=== PATIENT | female | born 1940 | race Caucasian/White ===

== ENCOUNTER → 2020-09-28 12:05 | Outpatient (CLI) | payer MEDICARE, SELFPAY ==
[2020-09-20 15:44] VITALS: BMI 32.2
--- NOTE | 2020-09-28 12:07 | MRI_ITS ---
STUDY: MRI ABDOMEN WITH AND WITHOUT CONTRAST REASON FOR EXAM: Female, 79 years old. staging for liver ca TECHNIQUE: Standardized fat and water weighted pulse sequences were obtained in all 3 orthogonal planes post contrast administration. IV 17 cc dotarem was administered for the contrast portion of the examination. COMPARISON: None. FINDINGS: Examination is technically limited in large part due to motion artifact related to respiratory motion. Definitive evaluation, including lesion characterization and relationship of the lesion to adjacent portal and hepatic veins cannot be made. Some diagnostic information is available. There is a heterogeneous 4.8 cm lesion in the proximal hilar segment 7 crossing over into segment 8. The lesion is intimately related to the right hepatic vein and to the superior branch of the right portal vein. The lesion is heterogeneous with continuous filling and of enhancement and peripheral enhancement predominance. Liver parenchyma is normal without cirrhosis. There is no ascites. Portal vein is patent. There is no upper abdominal lymphadenopathy. 2.8 cm benign left adrenal adenoma is present. Right adrenal is normal. There are bilateral renal rounded lesions of various sizes. However, definitive characterization cannot be performed due to difficulty assessing for contrast enhancement with heterogeneous signal of the lesions. Perirenal space is normal. Spleen and pancreas are normal. There is no intestinal obstruction. MRI/MRI Abd WITH and W/O Contrast IMPRESSION: 1. Technically limited exam. See above for discussion regarding inability to characterize relationship between the lesion and hepatic vasculature. 2. 4.8 cm segment 7 lesion, incompletely characterized, differential diagnosis is hemangioma versus less likely hepatoma. 3. No cirrhosis, normal parenchyma. 4. Recommend performing dedicated hepatic/hemangioma multiphasic protocol CT with IV contrast for more definitive diagnosis. 5. Renal lesions, incompletely characterized. These can be diagnosed at the time of the above recommended hepatic CT. Electronically Signed: Stacey Petersen, at 20:25 EST Tel , Service support ,
== END ==
PROVIDERS: PCP Preventive Medicine Occupational Medicine; Referring Provider Internal Medicine Medical Oncology; Visit Provider Internal Medicine Medical Oncology
DX: C22.9 Malignant neoplasm of liver, not specified as primary or secondary (principal)
CPT/HCPCS: 74183; A9575

== ENCOUNTER 2020-12-13 06:59 | Day surgery (SDC) | payer MEDICARE, SELFPAY ==
--- NOTE | 2009-11-13 07:00 | HP_ITS ---
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: No Is patient in pain?: No Allergies Iodinated Contrast Media Adverse Reaction (Verified 10/17/20 08:22) NEEDS FOLLOW-UP Medications Allopurinol [Zyloprim] 300 mg PO DAILY 09/19/20 [History Confirmed 10/17/20] Amlodipine [Norvasc] 5 mg PO DAILY 09/19/20 [History Confirmed 10/17/20] Aspirin [Adult Low Dose Aspirin EC] 81 mg PO DAILY 09/19/20 [History Confirmed 10/17/20] Carvedilol 25 mg PO BID 09/19/20 [History Confirmed 10/17/20] Clonidine HCl 2 mg PO DAILY 09/19/20 [History Confirmed 10/17/20] Furosemide [Lasix] 40 mg PO DAILY 09/19/20 [History Confirmed 10/17/20] Insulin Glargine,Hum.rec.anlog [Lantus] 50 units SQ DAILY 09/19/20 [History Confirmed 10/17/20] Lisinopril [Zestril] 40 mg PO DAILY 09/19/20 [History Confirmed 10/17/20] Omeprazole [Prilosec] 20 mg PO DAILY 09/19/20 [History Confirmed 10/17/20] Pravastatin [Pravachol] 40 mg PO DAILY 09/19/20 [History Confirmed 10/17/20] Sotalol HCl [Betapace AF (Beta Callie)] 80 mg PO BID 09/19/20 [History Confirmed 10/17/20] Vits A,C,E/Lutein/Minerals [Ocuvite with Lutein Tablet] 1 tab PO DAILY 09/19/20 [History Confirmed 10/17/20] [facility] Medical History Adenocarcinoma of liver (Acute) Benign neoplasm of adrenal gland (Acute) Carotid artery disease (Acute) Congenital renal cyst (Acute) Diabetes mellitus type II, controlled (Acute) Emphysema, unspecified (Acute) Essential hypertension (Acute) Heart disease, unspecified (Acute) Renal cyst, [place], hemorrhage (Acute) Right renal mass (Acute) Unspecified urinary incontinence (Acute) Surgical History History of carotid endarterectomy (Acute) History of cholecystectomy (Acute) History of colonoscopy (Acute) History of liver biopsy (Acute) Family History Sister Breast cancer Brother Cancer Social History (Updated 10/17/20 @ 08:[address] Mamadou Fam MD) Smoking Status: Never smoker alcohol intake: current substance use type: does not use HPI HPI HPI: SASKIA FU, is a 80 F who presents to the office today for HPI HPI Surgical H&P: Yes HPI: SASKIA FU is a 80 F who presents to the office today for Endoscopy. 79-year-old woman with history of right kidney mass on observation, was found to have a mass in the right hepatic lobe measuring 5.1 cm with questionable vascular invasion adjacent to the hepatic IVC, left adrenal lesion 2.9 cm and right kidney nodule on CT done at [facility] in [place]. She had a CT- guided biopsy on 09/06/2020 at [place]. 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 She has had a colonoscopy approximately 11 years ago which she cannot recall where it was done or who did it. She has had 4 C-sections a laparoscopic cholecystectomy approximately 16 years ago and a total abdominal hysterectomy. Patient has been complaining of abdominal pain in both the left and right upper quadrants has been going on for approximately 2 weeks and gradually increasing in nature. She cannot recall any association with foods that she has been eating or activities. ROS General General: No weight change, appetite, fatigue, colon cancer, breast cancer or weakness HEENT HEENT: No difficulty swallowing, eye injury, eye surgery, swollen glands or hoarseness Endo Endocrine: Yes diabetes mellitus; no thyroid disease, thyroid cancer, Hair loss, heat intolerance or cold intolerance Skin Skin: Yes rash; no changing moles Additional Details: Frequent yeast rashes under breast Breast Breast: No left breast lump, right breast lump, nipple discharge, breast pain, abnormal mammogram, abnormal US or breast enlargement Musc Musculoskeletal: Yes back problems; no arthritis, rheumatoid arthritis, gout or joint pain Cardio Cardiovascular: Yes heart disease, high blood pressure, heart stent, shortness of breat with exertion and chest pain; no murmur, pacemaker, atrial fibrillation, heart attack or palpitations Psych Psychiatric: Yes depression and anxiety; no hearing voices Resp Respiratory: Yes shortness of breath, Yes sleep apnea, No cough, No COPD, No asthma, No emphysema, No wheezing Gastro Gastrointestinal: Yes abdominal pain, No nausea or vomiting, No diarrhea, Yes constipation, No blood in stool, Yes acid reflux, Yes hemorrhoids, No ulcers, No gallbladder problem, No black,tarry stools Anjum Hematologic: Yes blood thinners, No blood disorders, No bleeding, No anemia, No blood clots Neuro Neurologic: No system reviewed and no additional complaints, except as docu, No as per HPI, No abnormal walking, No abnormal hearing, No abnormal movements, No abnormal speech, No behavioral changes, No burning sensations, No confusion, No seizure-like activity, No unsteadiness, No dizziness, No localized weakness, No frequent falls, No headache(s), No lack of coordination, No loss of vision, No memory loss, No numbness, No other visual disturbances, No radiating pain, No restless legs, No sensory deficit, No fainting, No tingling, No tremor(s), No weakness, No other Exam Chest Breast Palpation: No nipple discharge Cardio Heart Sounds: no murmurs Assessment & Plan Problems 1. Adenocarcinoma of liver C22.9 Plan I have discussed the above with the patient. I have offered the patient colonoscopy As well as an EGD for evaluation. I have explained the risks/benefits of the procedure and described the procedure. I have discussed the risks with the patient, including but not limited to: infection, bleeding, perforation of the GI tract requiring emergency surgery, inability to complete the procedure, injury to any internal organs, complications of anesthesia, etc. - the patient understands and agrees to proceed. I have answered all the patient's questions to the patient's satisfaction and the patient has no further questions. The patient has been given instructions for the colon cleansing preparation. Coding Level of Care Code Attention Kajal Diagnoses Adenocarcinoma of liver C22.9 Time Spent (min) 15 Comment Please code this is a telephone visit for 15 minutes. COVID (Procedure Consent) Procedure Criteria Procedure Criteria: Yes Elective The surgeon/proceduralist and patient have discussed in detail the risk of exposure to and/or potential harm posed by the COVID-19 virus with having a surgery/procedure at this time versus the risk of? delaying the surgery/procedure. It is not possible to know either the risk of delaying the surgery or procedure or chance of getting an infection with perfect accuracy, but a joint decision was made between the patient and the surgeon/proceduralist ?to proceed at this time with the scheduled surgery/procedure as indicated on the consent form.
[2020-10-24 14:58] VITALS: BMI 31.6
[2020-12-13] VITALS (7 sets, daily range): BP systolic 125–155; BP diastolic 57–101; PULSE 59–66; RESP 16; TEMP 36.2–36.3; O2SAT 96–98; BMI 29.7
--- NOTE | 2020-12-13 07:20 | HP.PCM_ITS ---
History and Physical Date of Admission: 12/13/20 [facility] Medical Records Department [address] [place] [address] MR#: [id number] Acct: [id number] Name: SASKIA FU Rep #:[id number] : 1940 80 From: Mamadou Fam MD PCP: Dr. Jayme Kurtz, DO Status:[facility] Location: EN Intake Intake Visit Reasons: EGD & C-Scope liver cancer Chief Complaint: consult for EGD and C-scope Honing Machine Set Up Operator Required: No Is patient in pain?: No Allergies Iodinated Contrast Media Adverse Reaction (Verified 10/17/20 08:22) NEEDS FOLLOW-UP Medications Allopurinol [Zyloprim] 300 mg PO DAILY 09/19/20 [History Confirmed 10/17/20] Amlodipine [Norvasc] 5 mg PO DAILY 09/19/20 [History Confirmed 10/17/20] Aspirin [Adult Low Dose Aspirin EC] 81 mg PO DAILY 09/19/20 [History Confirmed 10/17/20] Carvedilol 25 mg PO BID 09/19/20 [History Confirmed 10/17/20] Clonidine HCl 2 mg PO DAILY 09/19/20 [History Confirmed 10/17/20] Furosemide [Lasix] 40 mg PO DAILY 09/19/20 [History Confirmed 10/17/20] Insulin Glargine,Hum.rec.anlog [Lantus] 50 units SQ DAILY 09/19/20 [History Confirmed 10/17/20] Lisinopril [Zestril] 40 mg PO DAILY 09/19/20 [History Confirmed 10/17/20] Omeprazole [Prilosec] 20 mg PO DAILY 09/19/20 [History Confirmed 10/17/20] Pravastatin [Pravachol] 40 mg PO DAILY 09/19/20 [History Confirmed 10/17/20] Sotalol HCl [Betapace AF (Beta Callie)] 80 mg PO BID 09/19/20 [History Confirmed 10/17/20] Vits A,C,E/Lutein/Minerals [Ocuvite with Lutein Tablet] 1 tab PO DAILY 09/19/20 [History Confirmed 10/17/20] [facility] Medical History Adenocarcinoma of liver (Acute) Benign neoplasm of adrenal gland (Acute) Carotid artery disease (Acute) Congenital renal cyst (Acute) Diabetes mellitus type II, controlled (Acute) Emphysema, unspecified (Acute) Essential hypertension (Acute) Heart disease, unspecified (Acute) Renal cyst, [place], hemorrhage (Acute) Right renal mass (Acute) Unspecified urinary incontinence (Acute) Surgical History History of carotid endarterectomy (Acute) History of cholecystectomy (Acute) History of colonoscopy (Acute) History of liver biopsy (Acute) Family History Sister Breast cancer Brother Cancer Social History (Updated 10/17/20 @ 08:[address] Mamadou Fam MD) Smoking Status: Never smoker alcohol intake: current substance use type: does not use HPI HPI Surgical H&P: Yes HPI: SASKIA FU, is a 80 F who presents to the office today for Endoscopy. 79-year-old woman with history of right kidney mass on observation, was found to have a mass in the right hepatic lobe measuring 5.1 cm with questionable vascular invasion adjacent to the hepatic IVC, left adrenal lesion 2.9 cm and right kidney nodule on CT done at [facility] in [place]. She had a CT- guided biopsy on 09/06/2020 at [place]. 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 She has had a colonoscopy approximately 11 years ago which she cannot recall where it was done or who did it. She has had 4 C-sections a laparoscopic cholecystectomy approximately 16 years ago and a total abdominal hysterectomy. Patient has been complaining of abdominal pain in both the left and right upper quadrants has been going on for approximately 2 weeks and gradually increasing in nature. She cannot recall any association with foods that she has been eating or activities. ROS General General: No weight change, appetite, fatigue, colon cancer, breast cancer or weakness HEENT HEENT: No difficulty swallowing, eye injury, eye surgery, swollen glands or hoarseness Endo Endocrine: Yes diabetes mellitus; no thyroid disease, thyroid cancer, Hair loss, heat intolerance or cold intolerance Skin Skin: Yes rash; no changing moles Additional Details: Frequent yeast rashes under breast Breast Breast: No left breast lump, right breast lump, nipple discharge, breast pain, abnormal mammogram, abnormal US or breast enlargement Musc Musculoskeletal: Yes back problems; no arthritis, rheumatoid arthritis, gout or joint pain Cardio Cardiovascular: Yes heart disease, high blood pressure, heart stent, shortness of breat with exertion and chest pain; no murmur, pacemaker, atrial fibrillation, heart attack or palpitations Psych Psychiatric: Yes depression and anxiety; no hearing voices Resp Respiratory: Yes shortness of breath, Yes sleep apnea, No cough, No COPD, No asthma, No emphysema, No wheezing Gastro Gastrointestinal: Yes abdominal pain, No nausea or vomiting, No diarrhea, Yes constipation, No blood in stool, Yes acid reflux, Yes hemorrhoids, No ulcers, No gallbladder problem, No black,tarry stools Anjum Hematologic: Yes blood thinners, No blood disorders, No bleeding, No anemia, No blood clots Neuro Neurologic: No system reviewed and no additional complaints, except as docu, No as per HPI, No abnormal walking, No abnormal hearing, No abnormal movements, No abnormal speech, No behavioral changes, No burning sensations, No confusion, No seizure-like activity, No unsteadiness, No dizziness, No localized weakness, No frequent falls, No headache(s), No lack of coordination, No loss of vision, No memory loss, No numbness, No other visual disturbances, No radiating pain, No restless legs, No sensory deficit, No fainting, No tingling, No tremor(s), No weakness, No other Exam Chest Breast Palpation: No nipple discharge Cardio Heart Sounds: no murmurs Assessment & Plan Problems 1. Adenocarcinoma of liver C22.9 Plan I have discussed the above with the patient. I have offered the patient colonoscopy As well as an EGD for evaluation. I have explained the risks/benefits of the procedure and described the procedure. I have discussed the risks with the patient, including but not limited to: infection, bleeding, perforation of the GI tract requiring emergency surgery, inability to complete the procedure, injury to any internal organs, complications of anesthesia, etc. - the patient understands and agrees to proceed. I have answered all the patient's questions to the patient's satisfaction and the patient has no further questions. The patient has been given instructions for the colon cleansing preparation. Coding Level of Care Code Attention Senior Actuarial Analyst Diagnoses Adenocarcinoma of liver C22.9 Time Spent (min) 15 Comment Please code this is a telephone visit for 15 minutes. COVID (Procedure Consent) Procedure Criteria Procedure Criteria: Yes Elective The surgeon/proceduralist and patient have discussed in detail the risk of exposure to and/or potential harm posed by the COVID-19 virus with having a surgery/procedure at this time versus the risk of? delaying the surgery/procedure. It is not possible to know either the risk of delaying the surgery or procedure or chance of getting an infection with perfect accuracy, but a joint decision was made between the patient and the surgeon/proceduralist ?to proceed at this time with the scheduled surgery/procedure as indicated on the consent form. I have re-examined the patient. There are no clinical changes since date of exam.
[2020-12-13] MEDS: Lactated Ringers 1,000 ML 100 ML IV (07:46)
--- NOTE | 2020-12-13 08:00 | EGD_PTH ---
PATIENT: SASKIA FU LOC: EN U#:[id number] AGE/SX: 80/F ROOM: RE12/13/[address]: Dr. Mamadou Fam MD : 1940 BED: DIS: 12/13/2020 SPEC #: [id number] RECD: 12/13/20 10:52 STATUS: ARLEEN REVenus #: [id number] ALTHEA: 12/13/20 08:[address]: Mamadou Fam DEPT: SURGICAL PATHOLOGY RECD BY: Shoshana Gross ENTERED: 12/13/20 12:55 SP TYPE: EGD BIOPSY OTHR DR: Dr. Jayme Kurtz, DO Tissues: Gastric mucous membrane Procedures: Surgery Specimen Level IV HEADER OPERATION: Colonoscopy, [place] DIAGNOSIS: Adenocarcinoma of liver TISSUE SUBMITTED: Antrum biopsy for H. pylori and path MICROSCOPIC DIAGNOSIS Antrum biopsy: Mild gastritis. See microscopic description and comment. SJ:alexandrea 12/14/2020 COMMENT The results of immunohistochemistry for Helicobacter pylori will be reported separately ([id number]). MICROSCOPIC DESCRIPTION Slides are reviewed. The specimen shows fragments of gastric mucosa with chronic inflammatory cell infiltrates in the lamina propria consisting of lymphocytes and plasma cells, consistent with mild chronic gastritis. GROSS DESCRIPTION Received in fixative is one container labeled with the patient's name and designated antrum biopsy. The specimen consists of one irregular fragment of light evans soft tissue that measures 0.6 x 0.2 x 0.1 cm. The specimen is totally submitted in one cassette. / AM:alexandrea 12/13/20 TC:3 CPT: 86561
--- NOTE | 2020-12-13 08:00 | IMM_PTH ---
PATIENT: SASKIA FU LOC: EN U#:[id number] AGE/SX: 80/F ROOM: RE12/13/[address]: Dr. Mamadou Fam MD : 1940 BED: DIS: 12/13/2020 SPEC #: [id number] RECD: 12/13/20 13:51 STATUS: ARLEEN REQ #: [id number] ALTHEA: 12/13/20 08:[address]: Mamadou Fam DEPT: IMMUNOHISTOCHEMISTRY RECD BY: Melissa Wing ENTERED: 12/13/20 13:52 SP TYPE: IMMUNO OTHR DR: Dr. Jayme Kurtz DO Tissues: Stomach, NOS Procedures: H Pylori (initial) PHYSICIAN & INSTITUTION [place] [address] SPECIMEN INFORMATION: Tissue Source: Antrum biopsy Clinical Info: Adenocarcinoma of liver Specimen Number: [id number] CPT code: 91299 METHODOLOGY: Deparaffinized sections of prefer/formalin-fixed tissue or PAP/DQ stained slides are incubated with monoclonal/polyclonal antibodies/oligonucleotide probes. Localization is made via biotin free immunoperoxidase method. Appropriate controls are performed and reacted as expected. Results on target cell population are indicated in the following table: RESULTS: ANTIBODY / CLONE RESULT H Pylori (polyclonal) negative These tests were developed and their performance characteristics determined by [facility]. They may not have been cleared or approved by the U.S. Food and Drug Administration. The FDA has determined that such clearance or approval is not necessary. INTERPRETATION: Antrum, biopsy: Negative for Helicobacter pylori organisms. REBECCA:alexandrea 12/14/2020
[2020-12-13 08:10] LABS: Bedside Glucose 170 mg/dL (70-110)
--- NOTE | 2020-12-13 08:15 | RAD_ITS ---
STUDY: BARIUM ENEMA. REASON FOR EXAM: Female, 80 years old. POST COLONOSCOPY, SIGMOID STRICTURE FLUOROSCOPY TIME (if supplied): ( 3 minutes and 8 seconds ) minutes/seconds. 16 images were obtained. TECHNIQUE: Barium was introduced retrograde through the rectum. The entire colon was opacified. COMPARISON: None. FINDINGS: Scattered sigmoid diverticulosis. No evidence of retrograde obstruction to the flow of contrast. Scattered residual fecal material seen throughout the colon. RAD/Barium Enema w/Air Contrast IMPRESSION: Sigmoid diverticulosis. No evidence of obstruction. Electronically Signed: Landon Disla MD at 10:05 EST , Service support ,
--- NOTE | 2020-12-13 13:42 | OP.EGD_ITS ---
Patient Name: Kiana Pereira Procedure Date: 12/13/2020 7:45 AM Date of : 1940 Age: 80 Procedure: Upper GI endoscopy Indications: Upper abdominal pain, Abnormal CT of the GI tract Providers: Mamadou Fam MD Referring MD: Jayme Kurtz Medicines: See the Anesthesia note for documentation of the administered medications Patient Profile: This is an 80 year old female. Refer to note in patient chart for documentation of history and physical. Complications: No immediate complications. Procedure: Pre-Anesthesia Assessment: - Prior to the procedure, a History and Physical was performed, and patient medications and allergies were reviewed. The patient's tolerance of previous anesthesia was also reviewed. The risks and benefits of the procedure and the sedation options and risks were discussed with the patient. All questions were answered, and informed consent was obtained. Prior Anticoagulants: The patient has taken no previous anticoagulant or antiplatelet agents. ASA Grade Assessment: III - A patient with severe systemic disease. After reviewing the risks and benefits, the patient was deemed in satisfactory condition to undergo the procedure. After obtaining informed consent, the endoscope was passed under direct vision. Throughout the procedure, the patient's blood pressure, pulse, and oxygen saturations were monitored continuously. The gastroscope was introduced through the mouth, and advanced to the second part of duodenum. The upper GI endoscopy was accomplished without difficulty. The patient tolerated the procedure well. Scope In: 7:56:48 AM Scope Out: 7:59:21 AM Total Procedure Duration Time 0 hours 2 minutes 33 seconds Findings: A medium-sized hiatal hernia was present. No biopsies or other specimens were collected for this exam. The entire examined stomach was normal. Biopsies were taken with a cold forceps for Helicobacter pylori testing. The examined duodenum was normal. No biopsies or other specimens were collected for this exam. Impression: - Medium-sized hiatal hernia. No specimens collected. Z-line was at 34 cm diaphragmatic hiatus was at 37 cm. - Normal stomach. Biopsied. - Normal examined duodenum. No specimens collected. Recommendation: - Discharge patient to home. - Resume previous diet. - Continue present medications. - Await pathology results. - Repeat upper endoscopy PRN for surveillance. - Telephone my office for pathology results in 1 week. Procedure Code(s): --- Professional --- 42693, Esophagogastroduodenoscopy, flexible, transoral; with biopsy, single or multiple Diagnosis Code(s): --- Professional --- K44.9, Diaphragmatic hernia without obstruction or gangrene R10.10, Upper abdominal pain, unspecified R93.3, Abnormal findings on diagnostic imaging of other parts of digestive tract CPT copyright 2017 [employer]. All rights reserved. The codes documented in this report are preliminary and upon landcare officer review may be revised to meet current compliance requirements. MD Mamadou Saunders MD 12/13/2020 8:22:10 AM This report has been signed electronically. Number of Addenda: 0 Note Initiated On: 12/13/2020 7:45 AM
--- NOTE | 2020-12-13 13:42 | OP.COLON_ITS ---
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 Refer to note in patient chart for documentation of history and physical. Last Colonoscopy: more than 10 years ago. Complications: No immediate complications. Procedure: Pre-Anesthesia Assessment: - Prior to the procedure, a History and Physical was performed, and patient medications and allergies were reviewed. The patient's tolerance of previous anesthesia was also reviewed. The risks and benefits of the procedure and the sedation options and risks were discussed with the patient. All questions were answered, and informed consent was obtained. Prior Anticoagulants: The patient has taken no previous anticoagulant or antiplatelet agents. ASA Grade Assessment: III - A patient with severe systemic disease. After reviewing the risks and benefits, the patient was deemed in satisfactory condition to undergo the procedure. After I obtained informed consent, the scope was passed under direct vision. Throughout the procedure, the patient's blood pressure, pulse, and oxygen saturations were monitored continuously. The adult colonoscope was introduced through the anus with the intention of advancing to the cecum. The scope was advanced to the sigmoid colon before the procedure was aborted. Medications were given. The colonoscopy was aborted due to the extreme difficulty of the procedure. Scope In: 8:01:28 AM Scope Out: 8:09:53 AM Total Procedure Duration Time 0 hours 8 minutes 25 seconds Findings: Multiple small-mouthed diverticula were found in the sigmoid colon. Impression: - The procedure was aborted due to the extreme difficulty of the procedure. - Diverticulosis in the sigmoid colon. - No specimens collected. Recommendation: - Discharge patient to home. - Resume previous diet. - Continue present medications. - Perform an air contrast barium enema today. - Repeat colonoscopy in 5 years for surveillance. Procedure Code(s): --- Professional --- 99897, 53, Colonoscopy, flexible; diagnostic, including collection of specimen(s) by brushing or washing, when performed (separate procedure) Diagnosis Code(s): --- Professional --- Z53.8, Procedure and treatment not carried out for other reasons R10.10, Upper abdominal pain, unspecified C78.7, Secondary malignant neoplasm of liver and intrahepatic bile duct K57.30, Diverticulosis of large intestine without perforation or abscess without bleeding R93.3, Abnormal findings on diagnostic imaging of other parts of digestive tract CPT copyright 2017 [employer]. All rights reserved. The codes documented in this report are preliminary and upon blood bank laboratory professional review may be revised to meet current compliance requirements. MD Mamadou Saunders MD 12/13/2020 8:25:12 AM This report has been signed electronically. Number of Addenda: 0 Note Initiated On: 12/13/2020 7:59 AM
--- NOTE | 2020-12-13 13:42 | OP.CCLET_ITS ---
12/13/2020 Jayme Kurtz [address] [place] [address] Re : Upper GI endoscopy procedure for Kiana Pereira Dear Dr. Kurtz This procedure was performed on Sunday, December 13, 2020. My impressions and recommendations are as follows: Impressions : - Medium-sized hiatal hernia. No specimens collected. Z-line was at 34 cm diaphragmatic hiatus was at 37 cm. - Normal stomach. Biopsied. - Normal examined duodenum. No specimens collected. Recommendations : - Discharge patient to home. - Resume previous diet. - Continue present medications. - Await pathology results. - Repeat upper endoscopy PRN for surveillance. - Telephone my office for pathology results in 1 week. My findings are described in the full procedure note, which is enclosed. If I can be of further assistance, please feel free to contact me at Doctor phone number(s): , Fax: [phone], Work: . Sincerely, MD Mamadou Saunders MD 12/13/2020 8:22:10 AM This report has been signed electronically.
--- NOTE | 2020-12-13 13:43 | OP.CCLET_ITS ---
12/13/2020 Jayme Kurtz [address] [place] [address] Re : Colonoscopy procedure for Kiana Pereira Dear Dr. Kurtz This procedure was performed on Sunday, December 13, 2020. My impressions and recommendations are as follows: Impressions : - The procedure was aborted due to the extreme difficulty of the procedure. - Diverticulosis in the sigmoid colon. - No specimens collected. Recommendations : - Discharge patient to home. - Resume previous diet. - Continue present medications. - Perform an air contrast barium enema today. - Repeat colonoscopy in 5 years for surveillance. My findings are described in the full procedure note, which is enclosed. If I can be of further assistance, please feel free to contact me at Doctor phone number(s): , Fax: [phone], Work: . Sincerely, MD Mamadou Saunders MD 12/13/2020 8:25:12 AM This report has been signed electronically.
== END 2020-12-13 08:52 | disposition home or self-care (01) ==
LOC: EN 07:08 → AC 07:09
PROVIDERS: PCP Preventive Medicine Occupational Medicine; Referring Provider Preventive Medicine Occupational Medicine; Visit Provider Surgery
PROC: 0DJD8ZZ Inspection of Lower Intestinal Tract, Via Natural or Artificial Opening Endoscopic (ICD-10-PCS; CPT 45378; principal; 2020-12-13 07:55)
DX: K29.70 Gastritis, unspecified, without bleeding (principal); Z53.8 Procedure and treatment not carried out for other reasons; C78.7 Secondary malignant neoplasm of liver and intrahepatic bile duct; K57.30 Diverticulosis of large intestine without perforation or abscess without bleeding; K44.9 Diaphragmatic hernia without obstruction or gangrene; E11.9 Type 2 diabetes mellitus without complications; I11.0 Hypertensive heart disease with heart failure; I50.9 Heart failure, unspecified; F41.9 Anxiety disorder, unspecified; Q61.00 Congenital renal cyst, unspecified; I65.29 Occlusion and stenosis of unspecified carotid artery; K21.9 Gastro-esophageal reflux disease without esophagitis; G47.30 Sleep apnea, unspecified; E78.00 Pure hypercholesterolemia, unspecified; Z95.5 Presence of coronary angioplasty implant and graft; Z90.49 Acquired absence of other specified parts of digestive tract; Z79.4 Long term (current) use of insulin; Z79.82 Long term (current) use of aspirin; Z79.899 Other long term (current) drug therapy
CPT/HCPCS: 43239; 45378; 74280; 82962; 87426; 88305; 88342; C9803; J7120; J2405

== ENCOUNTER → 2021-03-05 11:56 | Outpatient (CLI) | payer MEDICARE, SELFPAY ==
[2021-01-25 14:02] VITALS: BMI 31.1
--- NOTE | 2021-03-05 11:57 | MRI_ITS ---
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 This report was created using [employer] report [employer] technology. CONTRAST: 15ML DOTAREM; A COMPARISON: MRI 09/28/2020, PET scan 10/03/2020. FINDINGS: LOWER THORAX: Unremarkable. No pleural effusion. LIVER: Slightly hyperintense T2 and hypointense T1 mass of the posterior medial right hepatic lobe measures 5.4 x 7.0 cm (measured 3.8 x 4.5 cm on prior MRI) and is in the region of abnormal FDG activity. Mild restricted diffusion. There is abnormal, heterogeneous peripheral lobular enhancement following IV contrast. There are also subcentimeter enhancing lesions of the more lateral (image 31 series 1004) hepatic lobe measuring 6 mm and posteriorly (image 35) measuring 7 mm, also suspicious, new since prior MRI. No architectural distortion or biliary dilation. GALLBLADDER AND BILE DUCTS: Gallbladder is surgically absent. PANCREAS: Unremarkable. No focal cystic or solid mass. SPLEEN: Unremarkable. Normal size without focal cystic or solid mass. ADRENALS: Left adrenal gland nodule measuring 2.7 cm with signal dropout on out of phase imaging compatible with a lipid rich adenoma (no abnormal FDG activity on recent PET scan. KIDNEYS AND URETERS: Predominantly T2 bright cyst of the anterior right kidney is stable in size measuring up to 2.4 cm with mildly nodular/thickened septation with mild enhancement (BOSNIAK III). Multiple bilateral T2 bright dominant renal cysts some of which are hyperintense on T1 (BOSNIAK I-II). Normal renal size and position. No hydronephrosis. INTRAPERITONEAL SPACE: Unremarkable. No ascites or other fluid collection. No free air. VASCULATURE: Unremarkable. Abdominal aorta is non-dilated. LYMPH NODES: Mildly enlarged portal caval lymph nodes measure up to 6.6 mm in short axis. MRI/MRI Abd WITH and W/O Contrast IMPRESSION: 1. Since 09/28/2020, UNFAVORABLE change. Increased size of enhancing right hepatic lobe mass compatible with neoplasm. Additional subcentimeter suspicious lesions measuring 6-7 mm in the right hepatic lobe, new since prior MRI. Differential considerations include primary liver (hepatoma, cholangiocarcinoma) versus metastasis. Tissue sampling recommended dominant lesion, if clinically appropriate. 2. BOSNIAK III anterior right renal cystic lesion, stable in size and appearance. Electronically Signed: Vahe Acuña MD ([place]) at 9:37 EDT , Service support ,
[2021-03-05 12:46] LABS: CREATININE FINGERSTICK 1.5 mg/dL (0.55-1.02)
[2021-03-05 13:53] VITALS: BP 196/64; PULSE 60; RESP 18; O2SAT 99; BMI 30.1
[2021-03-05] MEDS: 0.9% Normal Saline 1,000 ML 500 ML IV (13:53)
--- NOTE | 2021-03-05 14:03 | NURSING ---
Pt states her b/p gets elevated when in hospital setting. JOSELUIS Hansen states we will watch and see if it comes down after she gets settled in the department.
[2021-03-05 14:15] VITALS: BP 194/60; PULSE 62; RESP 18; O2SAT 98
[2021-03-05 14:30] VITALS: BP 204/50; PULSE 64; RESP 18; O2SAT 98
[2021-03-05 14:45] VITALS: BP 206/74; PULSE 64; RESP 18; O2SAT 97
[2021-03-05 15:00] VITALS: BP 187/66; PULSE 66; RESP 16; O2SAT 96
--- NOTE | 2021-03-05 15:22 | NURSING ---
Pt informed that Dr. Harvey would like her fluids to be stopped at 500mls total due to elevated b/p. JOSELUIS Hansen informs pt that she is to go to the ED if she has any headache, throbbing/rushing sounds in her ears, dizziness. Pt understands. JOSELUIS Hansen also advised pt to take her b/p at home in the evening, before bed and again in the morning to ensure it has returned to it's normal readings for her. Pt informed to call [facility] who prescribes her b/p medications if b/p remains elevated with no symptoms. Pt aware she is to drink extra fluids since she could not get the entire liter of fluid ordered here after her MRI contrast injection. Pt is understanding of all that has transpired and is able to recite back what she is to do at home.
== END ==
PROVIDERS: PCP Preventive Medicine Occupational Medicine; Visit Provider Internal Medicine Medical Oncology
DX: C22.9 Malignant neoplasm of liver, not specified as primary or secondary (principal)
CPT/HCPCS: 74183; A9575; J7040; A4216